=== PATIENT | male | born 1980 | race African-American/Black ===

== ENCOUNTER 2020-10-10 00:15 | Emergency (ER) | payer BC ==
[2020-10-10] MEDS ORDERED: levETIRAcetam 500 MG TAB ONE (00:49)
[2020-10-10 01:10] LABS: #Basophils 0.1 10x3/uL (0.0-0.2); #Eosinphils 0.1 10x3/uL (0.0-0.5); #Monocytes 0.4 10x3/uL (0.0-1.1); #Neutrophils 2.8 10x3/uL (1.5-8.4); %Basophils 1.4 % (0.0-2.0); %Eosinophils 2.4 % (0.0-6.0); %Monocytes 8.6 % (0.0-10.0); %Neutrophils 54.4 % (40.0-75.0); Hemoglobin 13.3 g/dL (13.5-17.5); Mean Corpuscular HGB CONC 33.7 g/dL (32.0-36.0); Mean Corpuscular Hemoglobin 26.8 pg (27.0-33.0); Mean Corpuscular Volume 79.6 fl (81.2-95.1); Mean Platelet Volume 11.1 fl (7.4-10.4); Platelet Count 199 10x3/uL (150-450); RBC Distribution Width 12.1 % (11.5-14.5); Red Blood Cell (RBC) Count 4.96 10x6/uL (4.32-5.72); White Blood Cell (WBC) Count 5.1 10x3/uL (3.5-10.5)
[2020-10-10 01:22] LABS: ALT (SGPT) 26 U/L (8-55); AST (SGOT) 27 U/L (5-34); Albumin 4.3 g/dL (3.5-5.0); Alkaline Phosphatase 47 U/L (40-110); Anion Gap 15 mmol/L (10-20); BUN (Urea Nitrogen) 11 mg/dL (8.9-20.6); Bilirubin, Total 0.4 mg/dL (0.2-1.2); Calc. Creatinine Clearance 0 mL/min (70-130); Calcium 9.4 mg/dL (7.8-10.44); Carbon Dioxide 23 mmol/L (22-29); Chloride 105 mmol/L (98-107); Globulin 3.1 g/dL (2.4-3.5); Glucose 105 mg/dL (70-105); Potassium 3.9 mmol/L (3.5-5.1); Protein, Total 7.4 g/dL (6.0-8.3); Sodium 139 mmol/L (136-145)
== END 2020-10-10 01:52 | disposition home or self-care (01) ==
LOC: CSHERS 00:15
DX: G40.909 Epilepsy, unspecified, not intractable, without status epilepticus (principal); Z79.899 Other long term (current) drug therapy
CPT/HCPCS: 80053; 85025; 99284

== ENCOUNTER 2021-06-17 14:57 | Emergency (ER) | payer OTHER, SELFPAY ==
[2021-06-17] MEDS ORDERED: Fluorescein Opthalmic Strip ONE (15:57)
[2021-06-17] MEDS ORDERED: Tetracaine 0.5% PF 4 ML BOT ONE (15:57)
[2021-06-17] MEDS ORDERED: Boostrix 0.5 ML (Tdap) VIAL ONE (16:45)
== END 2021-06-17 16:49 | disposition home or self-care (01) ==
LOC: CSHERS 14:57
DX: S05.91XA Unspecified injury of right eye and orbit, initial encounter (principal); V89.2XXA Person injured in unspecified motor-vehicle accident, traffic, initial encounter
CPT/HCPCS: 70450; 70486; 71045; 90471; 90715

== ENCOUNTER 2021-06-21 10:58 | Emergency (ER) | payer BC, SELFPAY ==
[2021-06-21] MEDS ORDERED: Tetracaine 0.5% PF 4 ML BOT ONE (11:42)
[2021-06-21] MEDS ORDERED: Fluorescein Opthalmic Strip ONE (12:52)
== END 2021-06-21 13:30 | disposition home or self-care (01) ==
LOC: CSHERS 10:58
DX: S05.11XA Contusion of eyeball and orbital tissues, right eye, initial encounter (principal); H11.421 Conjunctival edema, right eye; H54.7 Unspecified visual loss
CPT/HCPCS: 99283

== ENCOUNTER 2021-07-04 05:31 | Emergency (ER) | payer BC ==
[2021-07-04] MEDS ORDERED: Tetracaine 0.5% PF 4 ML BOT ONE (05:57)
[2021-07-04] MEDS ORDERED: Ondansetron PF 4 MG/2 ML Vial ONE (06:04)
[2021-07-04] MEDS ORDERED: Morphine 10 MG/ML VIAL ONE (06:04)
[2021-07-04] MEDS ORDERED: acetaZOLAMIDE Sodium 500 mg Vial IVP SCH (06:30)
[2021-07-04] MEDS ORDERED: Brimonidine Tartrate 0.2% Ophth Soln 5 ml Bottle R EYE SCH (07:00)
[2021-07-04] MEDS ORDERED: Timolol 0.5% Ophth Soln 5 ml Bottle R EYE SCH (07:00)
[2021-07-04] MEDS ORDERED: Morphine 4 MG/ML VIAL ONE (07:25)
== END 2021-07-04 07:30 | disposition home or self-care (01) ==
LOC: CSHERS 05:31
DX: H40.051 Ocular hypertension, right eye (principal); Z79.899 Other long term (current) drug therapy
CPT/HCPCS: 96374; 96375; 96376; J1120; J2270; J2405

== ENCOUNTER 2021-09-11 15:43 | Emergency (ER) | payer BC ==
[2021-09-11 16:26] LABS: #Basophils 0.1 10x3/uL (0.0-0.2); #Eosinphils 0.1 10x3/uL (0.0-0.5); #Monocytes 0.4 10x3/uL (0.0-1.1); #Neutrophils 2.9 10x3/uL (1.5-8.4); %Eosinophils 2.4 % (0.0-6.0); %Lymphocytes 31.3 % (18.0-47.0); %Monocytes 7.5 % (0.0-10.0); %Neutrophils 57.6 % (40.0-75.0); Mean Corpuscular HGB CONC 32.6 g/dL (32.0-36.0); Mean Corpuscular Hemoglobin 26.7 pg (27.0-33.0); Mean Corpuscular Volume 81.9 fl (81.2-95.1); Mean Platelet Volume 10.7 fl (7.4-10.4); Platelet Count 204 10x3/uL (150-450); RBC Distribution Width 12.1 % (11.5-14.5); Red Blood Cell (RBC) Count 4.87 10x6/uL (4.32-5.72)
[2021-09-11 16:39] LABS: ALT (SGPT) 26 U/L (8-55); AST (SGOT) 25 U/L (5-34); Albumin 4.4 g/dL (3.5-5.0); Alkaline Phosphatase 49 U/L (40-110); Anion Gap 15 mmol/L (10-20); BUN (Urea Nitrogen) 13 mg/dL (8.9-20.6); Bilirubin, Total 0.5 mg/dL (0.2-1.2); Calc. Creatinine Clearance 0 mL/min (70-130); Calcium 9.2 mg/dL (7.8-10.44); Carbon Dioxide 21 mmol/L (22-29); Chloride 106 mmol/L (98-107); Globulin 2.9 g/dL (2.4-3.5); Glucose 101 mg/dL (70-105); Potassium 4.1 mmol/L (3.5-5.1); Protein, Total 7.3 g/dL (6.0-8.3); Sodium 138 mmol/L (136-145)
[2021-09-11 16:43] LABS: Bilirubin Neg (Negative); Blood, Urine 10 (Negative); Clarity Clear (Clear); Glucose, Urine (Dipstick) Normal (Negative); Ketone, Urine 5 mg/dL (Negative); Leukocyte Negative (Negative); Nitrite Negative (Negative); Protein, Urine (Dipstick) 30 mg/dl (Neg-Trace); Specific Gravity, Urine 1.015 (1.002-1.036); Urobilinogen Normal mg/dL (Less than 2); pH, Urine 6.5 (5.0-9.0)
[2021-09-11 16:58] LABS: Amphetamine Not Detected (NotDetected); Barbiturates Screen Not Detected (NotDetected); Benzodiazepine Screen Not Detected (NotDetected); Cocaine Metabolite Screen Not Detected (NotDetected); Methadone Not Detected (NotDetected); Methamphetamine Not Detected (NotDetected); Opiate Screen Not Detected (NotDetected); Oxycodone Screen Not Detected (NotDetected); Phencyclidine (PCP) Not Detected (NotDetected); THC/Cannabinoid Screen Not Detected (NotDetected); Tricyclic Screen Not Detected (NotDetected)
[2021-09-11 16:59] LABS: Bacteria/HPF 1+ HPF (None Seen); Mucous/LPF Rare LPF (<2+); RBC/HPF 0-3 HPF (0-3); Squamous Epithelial 0-3 HPF (0-3); WBC/HPF 0-3 HPF (0-3)
== END 2021-09-11 17:11 | disposition home or self-care (01) ==
LOC: CSHERS 15:43
DX: G40.909 Epilepsy, unspecified, not intractable, without status epilepticus (principal); Z79.899 Other long term (current) drug therapy
CPT/HCPCS: 80053; 80306; 81003; 81015; 83605; 85025

== ENCOUNTER 2023-12-01 22:42 | Emergency (ER) | payer BC ==
[2023-12-01] MEDS ORDERED: Fluorescein Opthalmic Strip ONE (23:23)
[2023-12-01] MEDS ORDERED: Tetracaine 0.5% PF 4 ML BOT ONE (23:23)
== END 2023-12-01 23:47 | disposition home or self-care (01) ==
LOC: CSHERS 22:42
DX: T15.02XA Foreign body in cornea, left eye, initial encounter (principal); W44.9XXA Unspecified foreign body entering into or through a natural orifice, initial encounter
CPT/HCPCS: 99283